=== PATIENT | female | born 1995 | race Caucasian/White ===

== ENCOUNTER 2022-08-13 19:01 | Emergency (ER) | payer SELFPAY ==
[2022-08-13] VITALS (11 sets, daily range): BP systolic 105–127; BP diastolic 59–93; PULSE 65–101; RESP 16; TEMP 36.3–36.6; O2SAT 81–100; BMI 21.2
--- NOTE | 2022-08-13 19:34 | ED_ITS ---
HPI - Allergic Reaction General Chief complaint: Allergic Reaction Stated complaint: Allergy Time Seen by Provider: 08/13/22 19:26 Source: patient and EMS Mode of arrival: EMS History of Present Illness HPI narrative: Patient is a 27-year-old female who was brought in by EMS for evaluation of an allergic/anaphylactic reaction. Patient states she has had reactions like this in the past. Does not know the trigger of the reactions but she thinks that it is something dietary. She is yet to be fully tested for these reactions. States that she ate food earlier this evening that she thinks potentially had wheat in it which is what she thinks is her triggers to the reaction and it started to cause her to have hives. She was not having any shortness of breath but she did have nausea and when this has happened in the past she is had bowel movements/diarrhea. She did receive Solu-Medrol and Benadryl and also epi prior to arrival. She states she is feeling somewhat better. Related Data Previous Rx's Medication Instructions Recorded epinephrine 0.3 mg/0.3 mL 0.3 mg (0.3 mL) IM Q5-15M PRN 08/13/22 injection, auto-injector (EpiPen anaphylaxis #2 ea 2-Robel) Review of Systems Constitutional Constitutional: Reports system reviewed and no additional complaints, except as documented Respiratory Respiratory: Reports system reviewed and no additional complaints, except as documented Gastrointestinal Gastrointestinal: Reports system reviewed and no additional complaints, except as documented Integumentary/Breasts Skin/Breast: Reports system reviewed and no additional complaints, except as documented Allergic/Immunologic Allergic/Immunologic: Reports system reviewed and no additional complaints, except as documented Exam Initial Vital Signs Initial Vital Signs: Vital Signs Pulse Rate 101 H 08/13/22 19:09 Pulse Oximetry 100 08/13/22 19:09 Const General: cooperative, comfortable and No ill appearing [facility] Mouth: oral mucosae normal, oropharynx normal and moist mucous membranes Resp Effort & Inspection: normal respiratory effort Auscultation: clear to auscultation bilaterally Cardio Rate: regular rate Rhythm: regular rhythm GI Inspection: normal to inspection Palpation: No tender Skin Other: Patient does have urticaria throughout mostly on her upper extremities and upper chest and upper Neuro General: patient alert, patient awake and moves all extremities Extrem General: capillary refill normal Course Vital Signs Vital signs: Vital Signs - 8 hr 08/13/22 19:13 08/13/22 19:09 08/13/22 19:10 Temperature 97.8 F Pulse Rate 97 H 101 H Respiratory Rate 16 Blood Pressure 127/93 H 127/93 H Pulse Oximetry 100 100 Oxygen Delivery Method Room Air 08/13/22 19:10 08/13/22 19:58 08/13/22 20:00 Temperature Pulse Rate 101 H 69 99 H Respiratory Rate Blood Pressure 118/70 Pulse Oximetry 100 81 L 100 Oxygen Delivery Method 08/13/22 20:30 08/13/22 21:00 08/13/22 21:30 Temperature Pulse Rate 89 85 84 Respiratory Rate Blood Pressure 122/74 Pulse Oximetry 100 98 97 Oxygen Delivery Method 08/13/22 22:00 08/13/22 22:30 08/13/22 23:03 Temperature 97.4 F L Pulse Rate 79 76 65 Respiratory Rate 16 Blood Pressure 105/59 L Pulse Oximetry 99 97 98 Oxygen Delivery Method Room Air MDM - Allergic Reaction MDM Narrative Medical decision making narrative: Unsure the exact trigger for her symptoms although it appears to be some sort of dietary trigger. Patient did meet criteria for anaphylactic reaction as she did have GI symptoms and skin symptoms. Patient was observed for approximately 4 hours after the administration of epi. Her GI symptoms have resolved. Her skin symptoms have almost completely resolved. She is had no return of any symptoms. Will discharge patient home with a prescription for EpiPen. She was given return precautions and follow-up instructions. She expressed understanding Discharge Plan Departure Patient Disposition: Home Clinical Impression: Anaphylaxis Instructions: DI for Anaphylaxis Activity Restrictions/Additional Instructions: You can take Zyrtec or Benadryl at home like we discussed for the next couple days if you have a lingering rash. A prescription for the EpiPen was sent to the pharmacy of your choice. Please use it in the future if your symptoms return. Return to the emergency department for new symptoms. Prescriptions: New epinephrine [EpiPen 2-Robel] 0.3 mg/0.3 mL auto-injector 0.3 mg IM Q5-15M PRN (Reason: anaphylaxis) Qty: 2 0RF Rx Instructions: do not exceed 3 doses per episode Stand Alone Forms: Patient Portal/API
== END 2022-08-13 23:05 | disposition home or self-care (01) ==
PROVIDERS: Emergency Provider Emergency Medicine
DX: T78.00XA Anaphylactic reaction due to unspecified food, initial encounter (principal)
CPT/HCPCS: 99283